=== PATIENT | female | born 1960 | race Caucasian/White ===

== ENCOUNTER 2024-12-13 14:49 | Outpatient (CLI) | payer OTHER, SELFPAY | END 2024-12-13 23:59 | disposition home or self-care (01) | LOC: LAB 14:51 | PROVIDERS: PCP Internal Medicine; Visit Provider Internal Medicine Gastroenterology | DX: R14.0 Abdominal distension (gaseous) (principal); R19.5 Other fecal abnormalities ==

== ENCOUNTER 2025-03-01 08:39 | Day surgery (SDC) | payer OTHER, SELFPAY ==
[2025-02-28 12:35] VITALS: BMI 41.1
--- NOTE | 2025-03-01 07:49 | EXP.HP ---
History of Present Illness *Admission Date: 03/01/25 *Reason for visit:: Screening for colon cancer *History of present illness: Mrs. Wright is a 64-year-old female who is here for screening colonoscopy and it has been 10 years since last colonoscopy (April 2014). She does have a history of chronic polycystic liver disease. The patient did have chronic cholecystitis and symptomatic gallstones. She eventually did see Dr. Sudeep Styles at [facility] for cholecystectomy because of the difficulty in removing the gallbladder. He did plan fenestration of the larger cyst as well. The patient was last seen in May 2022. The patient did have a colonoscopy in April 2014 and she had no polyps but did have diverticulosis. She is overdue for repeat surveillance colonoscopy. The patient was doing biannual follow-up and her last visit with ar in [place] was May 2022. The patient does report some moderate gassiness and soreness and tenderness along the left and right abdomen and flanks. She reports only mild bloating. She has had some early satiety. She does report looser bowel movements at times with some frequency and incomplete defecation. She is on FiberCon. The patient does note mucus with her bowel movements but no blood. She reports no family history of colon cancer but her mother had pancreatic cancer. Her father had cancer of the renal pelvis. The patient does report some incomplete defecation with excessive wiping. [facility] Disclaimer: The information contained in this section may have been updated after the patient was seen, as this information can be updated by other users. Medical History (Updated 03/01/25 @ 07:51 by Savage Arana II, MD) Polycystic liver disease Hypertension Surgical History (Updated 02/28/25 @ 12:36 by Yeimi Funk RN) H/O sinus surgery H/O removal of cyst History of cholecystectomy H/O hernia repair Family History Father Cancer of kidney Mother Pancreatic cancer Social History (Updated 02/28/25 @ 12:33 by Yeimi Funk RN) Smoking Status: Never smoker alcohol intake: never substance use type: denies use current occupational status: unemployed Travel in the last 8 weeks?: Inside the [place] caffeine: Yes Have you lived/traveled outside US in past 30 days?: No Contact w/someone who lives/traveled outside US past 30 days?: No Exposure to someone with infectious disease in past 14 days?: No Do you have a fever (greater than 100.4 F or 38 C)?: No Have you tested positive for COVID-19?: No Exposed to someone with COVID-19 in past 14 days?: No Do you have a sore throat?: No Do you have a cough?: No Do you have any weakness?: No Are you experiencing any nausea/vomitting?: No Do you have any diarrhea?: No Are you experiencing any unusual bleeding?: No Do you have any muscle aches/pain?: No Do you have any abdominal pain?: No Are you experiencing loss of taste or smell?: No Review of Systems Review of Systems Review of systems (narrative): Negative *Cardiovascular Comments: Negative *Gastrointestinal Comments: Negative *Genitourinary Comments: Negative *Musculoskeletal Comments: Negative *Neurologic Comments: Negative Meds Home Medications and Allergies Home Medications ?Medication ?Instructions ?Recorded ?Confirmed ?Type acetaminophen 500 mg tablet 500 mg PO BID 12/13/24 02/28/25 History (Tylenol Extra Strength) calcium polycarbophil 625 mg 1,250 mg PO DAILY 12/13/24 02/28/25 History tablet (FiberCon) furosemide 40 mg tablet (Lasix) 40 mg PO DAILY 12/13/24 02/28/25 History glucosamine-chondroitin 250 mg-200 2 tab PO BID 12/13/24 02/28/25 History mg tablet (Osteo Bi-Flex) nadolol 20 mg tablet 20 mg PO HS 12/13/24 02/28/25 History potassium chloride 20 mEq 20 meq PO DAILY 12/13/24 02/28/25 History tablet,extended release(part/cryst) (Klor-Con M) sodium,potassium,mag sulfates 17.5 See Rx Instructions PO .COMPLEX 02/13/25 Rx gram-3.13 gram-1.6 gram oral soln #354 mL (Suprep Bowel Prep Kit) fexofenadine 30 mg tablet 0 mg PO DAILY 02/28/25 02/28/25 History guaifenesin 600 mg tablet, 600 mg PO BID 02/28/25 02/28/25 History extended release 12 hr (Mucinex) New Prescriptions to Start Prescriptions: Allergies Allergy/AdvReac Type Severity Reaction Status Date / Time No Known Allergies Allergy Verified 02/28/25 12:29 Exam Data for Last 24 hours I & O for Last 24 hours: Intake & Output 02/26/25 02/27/25 02/28/25 03/01/25 23:59 23:59 23:59 23:59 Weight 240 lb *Routine HEENT Exam Head: Present normocephalic Eye: Present EOMI and PERRL ENT: Present mucous membranes moist *Routine Neck Exam Neck: Present supple *Routine Respiratory Exam Respiratory: Present CTA bilaterally *Routine Cardiovascular Exam Cardiovascular: Present RRR *Routine Abdominal Exam Abdominal: Present soft and normoactive bowel sounds; Absent tenderness *Routine Rectal Exam Rectal:: deferred *Routine Genitalia Exam Genitalia:: deferred *Routine Extremities Exam Extremities: Absent cyanosis, clubbing or edema *Routine Skin Exam Skin: Present warm; Absent rash *Routine Neurological Exam Neurological: Present alert and oriented X3 Assessment and Plan *Assessment and plan (1) Screening for colon cancer: Status: Acute Category: Medical Code(s): Z12.11 - Encounter for screening for malignant neoplasm of colon Plan A/P: 1. Screening for colon cancer is the preprocedural diagnosis. It has been 10 years since last colonoscopy (April 2014). The patient will be anesthetized/sedated using MAC sedation. The patient has been seen and examined. Cardiac and lung assessment prior to the examination is stable. Proceed with planned screening colonoscopy.
[2025-03-01 09:08] VITALS: BP 147/78; PULSE 70; RESP 17; TEMP 36.2; O2SAT 94
--- NOTE | 2025-03-01 09:08 | EXP.ANES.CKL ---
[facility] Disclaimer: The information contained in this section may have been updated after the patient was seen, as this information can be updated by other users. Medical History (Updated 03/01/25 @ 07:51 by Savage Arana II, MD) Polycystic liver disease Hypertension Surgical History (Updated 02/28/25 @ 12:36 by Yeimi Funk, DANIS) H/O sinus surgery H/O removal of cyst History of cholecystectomy H/O hernia repair Family History Father Cancer of kidney Mother Pancreatic cancer Social History (Updated 02/28/25 @ 12:33 by Yeimi Funk RN) Smoking Status: Never smoker alcohol intake: never substance use type: denies use current occupational status: unemployed Travel in the last 8 weeks?: Inside the [place] Have you lived/traveled outside US in past 30 days?: No Contact w/someone who lives/traveled outside [place] past 30 days?: No Exposure to someone with infectious disease in past 14 days?: No Do you have a fever (greater than 100.4 F or 38 C)?: No Have you tested positive for COVID-19?: No Exposed to someone with COVID-19 in past 14 days?: No Do you have a sore throat?: No Do you have a cough?: No Do you have any weakness?: No Are you experiencing any nausea/vomitting?: No Do you have any diarrhea?: No Are you experiencing any unusual bleeding?: No Do you have any muscle aches/pain?: No Do you have any abdominal pain?: No Are you experiencing loss of taste or smell?: No [facility] Anesthesia Checklist Patient Identification Patient Identification: Arm Band Structural Data Admitted From: Home Planned Operative Procedure/s: Colonoscopy Consent for Planned Operative Procedure(s) Verified: Yes Verified Documents: Surgical Consent and History and Physical NPO Status Verified Time NPO: 00:00 Additional verifications Anesthesia Reactions: No Airway Assessment Mallampati Score:: Class II C-Spine Mobility Assessed: Yes TMJ Mobility Assessed: Yes Dentition: Good Dentition Neurological Assessment Level of Consciousness: Awake, Alert and Appropriate Anesthesia Plan Anesthesia Risk discussed: Yes Anesthesia Plan: Verified ASA Class: II Anesthesia Type: MAC
[2025-03-01] MEDS: LACTATED RINGERS 1000ML 1,000 ML 50 ML IV (09:15)
--- NOTE | 2025-03-01 09:25 | P.PCN_ITS ---
[facility] Procedure Note Date: 03/01/25 Time: 09:44 Procedure Note:: Colonoscopy Procedure Report: Colonoscopy with cold snare polypectomy Endoscopist: Savage Arana II, MD Referring physician: Sudeep Steve MD Date of Procedure: March 01, 2025 Equipment: Olympus 190 variable stiffness pediatric colonoscope Sedation: MAC sedation Indication: Mrs. Wright is a 64-year-old female who is here for screening colonoscopy and it has been 10 years since last colonoscopy (April 2014). She does have a history of chronic polycystic liver disease. The patient did have chronic cholecystitis and symptomatic gallstones. She eventually did see Dr. Sudeep Styles at [facility] for cholecystectomy because of the difficulty in removing the gallbladder. He did plan fenestration of the larger cyst as well. The patient did have a colonoscopy in April 2014 and she had no polyps but did have diverticulosis. The patient does report some moderate gassiness and soreness and tenderness along the left and right abdomen and flanks. She reports only mild bloating. She has had some early satiety. She does report looser bowel movements at times with some frequency and incomplete defecation. She is on FiberCon. The patient does note mucus with her bowel movements but no blood. She reports no family history of colon cancer but her mother had pancreatic cancer. Her father had cancer of the renal pelvis. The patient does report some incomplete defecation with excessive wiping. Procedure: Prior to the procedure, a history and physical exam was performed, and patient's medications and allergies were reviewed. The risks, benefits and alternatives of the sedation and procedure were discussed with the patient. All questions were answered and informed consent was obtained. The patient was brought to the procedure room. Patient identification and proposed procedure were verified by the physician and the nurse. The patient was placed in a left lateral decubitus position and the scope was passed under direct vision. Throughout the procedure, the patient's blood pressure, pulse, and oxygen saturations were monitored continuously. The colonoscopy was accomplished without difficulty. The patient tolerated the procedure well. Findings: On digital rectal examination there was normal rectal tone. There were no external hemorrhoids. The colonoscope was introduced through the anal canal to the rectum and advanced to the cecum. The ileocecal valve and appendiceal orifice were identified. The scope was advanced a short distance into the ileum which appeared grossly normal. The scope was then withdrawn into the colon. There were 6 colon polyps (cecum x 3 (3, 4 and 4 mm), ascending x 2 (5 and 6 mm) and transverse x 1 (6 mm)). These were all removed via cold snare polypectomy. The remaining cecum, ascending and transverse colon and mucosa were grossly nor mal. There were scattered diverticuli throughout the descending and sigmoid colon (LEFT colon). The rectum itself was normal. Upon retroflexion within the rectum there were grade 2 internal hemorrhoids. The preparation was excellent throughout with Robert Preparation Score of 9. The cecal time was 15 minutes. Impression: 1. Colonic polyps x 6 2. Left-sided diverticulosis 3. Grade 2 internal hemorrhoids Plan: I will follow-up the polyp histology and recommend repeat surveillance colonoscopy again in 3 years based upon the pathology. I would like for her to continue psyllium Konsyl on a long-term daily maintenance basis.
[2025-03-01 09:48] VITALS: BP 94/58; PULSE 82; RESP 16; TEMP 36.4; O2SAT 90
[2025-03-01 09:58] VITALS: BP 99/62; PULSE 84; RESP 16; O2SAT 92
[2025-03-01 10:08] VITALS: BP 119/81; PULSE 82; RESP 18; O2SAT 92
[2025-03-01 10:18] VITALS: BP 112/79; PULSE 80; RESP 18; O2SAT 95
[2025-03-01 10:40] VITALS: BP 120/70; PULSE 68; RESP 18; O2SAT 96
== END 2025-03-01 10:40 | disposition home or self-care (01) ==
PROVIDERS: PCP Internal Medicine; Visit Provider Internal Medicine Gastroenterology
PROC: 0DJD8ZZ Inspection of Lower Intestinal Tract, Via Natural or Artificial Opening Endoscopic (ICD-10-PCS; CPT 45378; principal; 2025-03-01 10:00)
DX: Z12.11 Encounter for screening for malignant neoplasm of colon (principal); Q44.6 Cystic disease of liver; D12.2 Benign neoplasm of ascending colon; D12.0 Benign neoplasm of cecum; D12.3 Benign neoplasm of transverse colon; K64.1 Second degree hemorrhoids; I10 Essential (primary) hypertension; Z90.49 Acquired absence of other specified parts of digestive tract; Z87.19 Personal history of other diseases of the digestive system; Z80.0 Family history of malignant neoplasm of digestive organs; Z56.0 Unemployment, unspecified; K57.30 Diverticulosis of large intestine without perforation or abscess without bleeding; Z79.899 Other long term (current) drug therapy
CPT/HCPCS: 45385; J1596; J2003; J2704; J7120